=== PATIENT | male | born 1955 | race Caucasian/White ===

== ENCOUNTER 2020-05-29 19:54 | Inpatient (IN) | payer MEDICARE, OTHER, SELFPAY ==
[2020-05-29 20:05] VITALS: BP 181/90; PULSE 103; RESP 14; TEMP 36.5; O2SAT 97; BMI 26.9
[2020-05-29 20:23] LABS: Basophils % 0.4 %; Eosinophils % 0.4 %; Hematocrit 42.7 % (42.0-52.0); Hemoglobin 13.5 g/dL (11.7-16.6); Lymphocytes # 1.2 10^3/uL (0.8-4.8); Lymphocytes % 12.6 %; Mean Corpuscular HGB Conc 31.6 g/dL (30.0-36.0); Mean Corpuscular Hemoglobin 29.1 pg (28.0-34.0); Mean Platelet Volume 11.3 fL (7.4-10.4); Monocytes # 0.6 10^3/uL (0.2-0.9); Monocytes % 5.7 %; Neutrophils # 7.9 10^3/uL (1.8-7.7); Neutrophils % 80.6 %; Nucleated Red Blood Cells % 0 %; Platelet Count 338 10^3/cmm (130-400); Red Blood Count 4.64 10^6/uL (4.1-5.3); Red Cell Distribution Width 12.5 % (12.1-15.1); White Blood Count 9.8 10^3/uL (4.0-10.0)
[2020-05-29 20:49] LABS: Acetaminophen < 5.0 ug/mL (10-30); Alanine Aminotransferase 7 U/L (0-41); Albumin Level 4.6 g/dL (3.5-5.2); Alcohol Level < 10 mg/dL (0-10); Alkaline Phosphatase 94 IU/L (40-130); Aspartate Amino Transferase 15 U/L (0-40); Blood Urea Nitrogen 10 mg/dL (8-23); Calcium 9.7 mg/dL (8.5-10.5); Carbon Dioxide 24 mmol/L (22-29); Chloride 98 mmol/L (98-107); Creatinine Clr Calc Pharmacy 113.8302; Globulin 3.2 g/dL (1.3-4.6); Glucose 139 mg/dL (65-115); Osmolality Calculated 280 mOsm/kg (285-295); Salicylate < 0.3 mg/dL (3-10); Sodium 136 mmol/L (136-145); Total Bilirubin 0.6 mg/dL (0.15-1.2); Total Protein 7.8 g/dL (6.6-8.7)
[2020-05-29 20:53] LABS: Add Urine Microscopic? NO
[2020-05-29 21:07] LABS: Urine Appearance Clear (CLEAR); Urine Color Yellow (Yellow); pH Urine 6.5 (5-7)
[2020-05-29 21:08] LABS: Bilirubin Urine Neg (NEGATIVE); Blood Urine Neg (Negative); Glucose Urine UA Norm (Normal); Ketones Urine Negative (Negative); Leukocyte Esterase Urine Negative (Negative); Nitrate Urine Negative (Negative); Protein Urine Neg (Negative); Specific Gravity, Urine 1.015 (1.005-1.030); Urobilinogen Urine Norm (Negative)
[2020-05-29 21:17] LABS: Amphetamines Screen Urine Negative (Negative); Barbiturates Screen Urine Negative (Negative); Benzodiazepines Screen Urine Negative (Negative); Cocaine Screen Urine Negative (Negative); Opiate Screen Urine Negative (Negative); PCP Screen Urine Negative (Negative); THC Screen Urine Negative (Negative)
--- NOTE | 2020-05-29 22:04 | W.ED.PSYCH ---
HPI - Psych General: Chief Complaint: Psychiatric Symptoms Stated Complaint: 96 hr Time Seen by Provider: 05/29/20 20:34 Source: patient and police Mode of arrival: other (law enforcement) Limitations: no limitations History of Present Illness: HPI Narrative: The patient was brought in by law enforcement because several complaints have been made about this patient harassing women. He apparently believes he is a famous hairdresser and has been asking women into his car so he can help fix their hair. He did this to several different women and they therefore called the police and he was arrested and placed in care home. Because of his continued bizarre behavior a court ordered 96-hour hold was obtained and he was brought in here to be evaluated. The patient denies homicidal or suicidal ideation. Associated symptoms: Reports delusions; Deny depression Review of Systems General: Reports: 10 or more systems reviewed and unremarkable except in HPI and below Const: Denies: fever(s), chills or body aches Card: Denies: palpitations, irregular heart rhythm, edema or swelling of feet/ankles Resp: Denies: dyspnea, productive cough or non-productive cough GI: Denies: abdominal pain, nausea or vomiting : Denies: flank pain, dysuria, urinary frequency, urinary urgency or urinary hesitancy Musc: Denies: neck pain, back pain or extremity swelling Skin/Breast: Denies: rash, pruritus or erythema Neuro: Denies: headache(s), numbness in extremities or weakness in extremities Psych: Denies: anxiety, depression or mood swings Endo: Denies: polyuria, polydipsia or tired all the time Physical Exam Const: COMMON NORMALS: no acute distress, average body habitus, patient oriented x3, no limitations, healthy appearing, alert and well nourished HENMT: COMMON NORMALS: normocephalic, atraumatic and moist oral mucous membranes HEAD & SCALP: normocephalic and atraumatic Neck/C-Spine: COMMON NORMALS: no meningeal signs and no JVD Resp: COMMON NORMALS: normal respiratory effort, No retractions, No use of accessory muscles, clear to auscultation bilaterally and percussion normal AUSCULTATION: clear to auscultation bilaterally PERCUSSION: percussion normal Cardio: COMMON NORMALS: no JVD, regular rate, regular rhythm, S1 normal heart sound present, S2 normal heart sound present, No gallops present (Cardio), No clicks present (Cardio), No murmurs present (Cardio), No rub (Cardio) and Peripheral pulses 2+ throughout RATE: regular rate RHYTHM: regular rhythm HEART SOUNDS: S1 normal heart sound present and S2 normal heart sound present PERIPHERAL PULSES: Peripheral pulses 2+ throughout GI: COMMON NORMALS: Normal to inspection, nondistended, normoactive bowel sounds present, Soft to palpation, non-tender, No hepatosplenomegaly present, no masses and no bruits PALPATION: Yes Soft to palpation and Yes No hepatosplenomegaly present : COMMON NORMALS: Yes no CVA tenderness BLADDER/KIDNEY EXAM: Yes no CVA tenderness Back/Pelvis: COMMON NORMALS: no CVA tenderness Extremity: COMMON NORMALS: normal to inspection, full ROM, capillary refill normal, no calf tenderness and no pedal edema Neuro: COMMON NORMALS: patient oriented x3 SENSORIUM/ORIENTATION: Yes alert MENINGEAL SIGNS: Yes no meningeal signs Psych: COMMON NORMALS: speech normal ATTITUDE: Yes calm ACTIVITY/MOTOR BEHAVIOR: Yes appropriate eye contact SPEECH: Yes normal speech THOUGHT CONTENT: Yes delusions Skin: COMMON NORMALS: no rashes or lesions noted, no wounds, turgor normal, no jaundice, no petechiae and no mottling GENERAL SKIN EXAM: no rashes or lesions noted and turgor normal MDM - Psych MDM Narrative: Medical decision making narrative: 65-year-old male with delusions of grandeur leading to harassing innocent women. He is medically cleared and admitted to the neuropsychiatric unit for further evaluation and management. Medical Records: Attestation: I reviewed the patient's medical records. Lab Data: Attestation: I reviewed the patient's lab results. Labs: Lab Results 05/29/20 05/29/20 05/29/20 Range/Units 20:14 20:14 20:46 WBC 9.8 (4.0-10.0) 10^3/ uL RBC 4.64 (4.1-5.3) 10^6/u L Hgb 13.5 (11.7-16.6) g/dL Hct 42.7 (42.0-52.0) % MCV 92.0 (80-94) fL MCH 29.1 (28.0-34.0) pg MCHC 31.6 (30.0-36.0) g/dL RDW 12.5 (12.1-15.1) % Plt Count 338 (130-400) 10^3/c mm MPV 11.3 H (7.4-10.4) fL Neut % (Auto) 80.6 % Lymph % (Auto) 12.6 % [place] % (Auto) 5.7 % Eos % (Auto) 0.4 % Baso % (Auto) 0.4 % Neut # (Auto) 7.9 H (1.8-7.7) 10^3/u L Lymph # (Auto) 1.2 (0.8-4.8) 10^3/u L [place] # (Auto) 0.6 (0.2-0.9) 10^3/u L Eos # (Auto) 0.0 (0.0-0.8) 10^3/u L Baso # (Auto) 0.0 (0.0-0.1) 10^3/u L Nucleated RBC % (a uto) 0 % Nucleated RBCs # 0.0 /100WBC Sodium 136 (136-145) mmol/L Potassium 4.0 (3.5-5.1) mmol/L Chloride 98 (98-107) mmol/L Carbon Dioxide 24 (22-29) mmol/L Anion Gap 18.0 (5-19) BUN 10 (8-23) mg/dL Creatinine 0.8 (0.7-1.2) mg/dL GFR Calculation 97.0 (90-130) mL/min Glucose 139 H (65-115) mg/dL Calculated Osmolal ity 280 L (285-295) mOsm/k g Calcium 9.7 (8.5-10.5) mg/dL Total Bilirubin 0.6 (0.15-1.2) mg/dL AST 15 (0-40) U/L ALT 7 (0-41) U/L Alkaline Phosphata se 94 (40-130) IU/L Total Protein 7.8 (6.6-8.7) g/dL Albumin 4.6 (3.5-5.2) g/dL Globulin 3.2 (1.3-4.6) g/dL Urine Color (Yellow) Urine Appearance (CLEAR) Urine pH (5-7) Ur Specific Gravit y (1.005-1.030) Urine Protein (Negative) Urine Glucose (UA) (Normal) Urine Ketones (Negative) Urine Blood (Negative) Urine Nitrate (Negative) Urine Bilirubin (NEGATIVE) Urine Urobilinogen (Negative) mg/dL Ur Leukocyte Marla ase (Negative) Salicylates < 0.3 L (3-10) mg/dL Urine Opiates Scre en Negative (Negative) ng/mL Acetaminophen < 5.0 L (10-30) ug/mL Ur Barbiturates Sc reen Negative (Negative) ng/mL Ur Phencyclidine S crn Negative (Negative) ng/mL Ur Amphetamines Sc reen Negative (Negative) ng/mL U Benzodiazepines Scrn Negative (Negative) ng/mL Urine Cocaine Scre en Negative (Negative) ng/mL U Marijuana (THC) Screen Negative (Negative) ng/mL Ethyl Alcohol < 10 (0-10) mg/dL 05/29/20 Range/Units 20:46 WBC (4.0-10.0) 10^3/ uL RBC (4.1-5.3) 10^6/u L Hgb (11.7-16.6) g/dL Hct (42.0-52.0) % MCV (80-94) fL MCH (28.0-34.0) pg MCHC (30.0-36.0) g/dL RDW (12.1-15.1) % Plt Count (130-400) 10^3/c mm MPV (7.4-10.4) fL Neut % (Auto) % Lymph % (Auto) % [place] % (Auto) % Eos % (Auto) % Baso % (Auto) % Neut # (Auto) (1.8-7.7) 10^3/u L Lymph # (Auto) (0.8-4.8) 10^3/u L [place] # (Auto) (0.2-0.9) 10^3/u L Eos # (Auto) (0.0-0.8) 10^3/u L Baso # (Auto) (0.0-0.1) 10^3/u L Nucleated RBC % (a uto) % Nucleated RBCs # /100WBC Sodium (136-145) mmol/L Potassium (3.5-5.1) mmol/L Chloride (98-107) mmol/L Carbon Dioxide (22-29) mmol/L Anion Gap (5-19) BUN (8-23) mg/dL Creatinine (0.7-1.2) mg/dL GFR Calculation (90-130) mL/min Glucose (65-115) mg/dL Calculated Osmolal ity (285-295) mOsm/k g Calcium (8.5-10.5) mg/dL Total Bilirubin (0.15-1.2) mg/dL AST (0-40) U/L ALT (0-41) U/L Alkaline Phosphata se (40-130) IU/L Total Protein (6.6-8.7) g/dL Albumin (3.5-5.2) g/dL Globulin (1.3-4.6) g/dL Urine Color Yellow (Yellow) Urine Appearance Clear (CLEAR) Urine pH 6.5 (5-7) Ur Specific Gravit y 1.015 (1.005-1.030) Urine Protein Neg (Negative) Urine Glucose (UA) Norm (Normal) Urine Ketones Negative (Negative) Urine Blood Neg (Negative) Urine Nitrate Negative (Negative) Urine Bilirubin Neg (NEGATIVE) Urine Urobilinogen Norm (Negative) mg/dL Ur Leukocyte Marla ase Negative (Negative) Salicylates (3-10) mg/dL Urine Opiates Scre en (Negative) ng/mL Acetaminophen (10-30) ug/mL Ur Barbiturates Sc reen (Negative) ng/mL Ur Phencyclidine S crn (Negative) ng/mL Ur Amphetamines Sc reen (Negative) ng/mL U Benzodiazepines Scrn (Negative) ng/mL Urine Cocaine Scre en (Negative) ng/mL U Marijuana (THC) Screen (Negative) ng/mL Ethyl Alcohol (0-10) mg/dL Discharge Plan Discharge Patient Disposition: Admitted As Inpatient Admit Provider: Harinder Ocampo Clinical Impression: Acute psychosis Condition: Stable Coding Level of Care Code ED Tap And Die Maker Technician for Mulugeta Narvaez
[2020-05-29 22:25] LABS: Thyroid Stimulating Hormone 1.96 uIU/mL (0.27-4.20)
--- NOTE | 2020-05-29 22:27 | PC.NURSE ---
[facility] dept needs to be contacted when pt is d/c [phone]
[2020-05-29 22:32] VITALS: BP 156/92; PULSE 96; RESP 18; O2SAT 97
[2020-05-30 06:00] VITALS: BP 154/85; PULSE 87; RESP 17; TEMP 36.9; O2SAT 96
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
[2020-05-30 14:00] VITALS: BP 144/85; PULSE 90; RESP 20; TEMP 37.1; O2SAT 96
[2020-05-30] MEDS: ARIPiprazole 10 mg Tablet PO (17:12)
[2020-05-30 21:12] VITALS: BP 150/92; PULSE 95; RESP 22; TEMP 37; O2SAT 98
[2020-05-31 06:00] VITALS: BP 152/97; PULSE 81; RESP 20; TEMP 36.7; O2SAT 94
[2020-05-31] MEDS: ARIPiprazole 10 mg Tablet PO (08:35)
--- NOTE | 2020-05-31 10:27 | PC.SOCIAL ---
Deputy Glover called yesterday and spoke to nurse Lucas. Nurse Shayy told this worker that she requested a fax showing the no orosco warrant notification or proof that we are required to notify the [facility]'s department upon patient's discharge. It was said by Shayy that [facility] wants patient picked up so they want to be notified. phone number: [phone]. Nurse Lucas provided this worker a post-it about this message. This information has also been shared with U social worker masters
--- NOTE | 2020-05-31 11:15 | PC.SOCIAL ---
important message for medicare provided to patient. signed and dated copy in chart and copy provided to patient.
[2020-05-31 14:00] VITALS: BP 152/97; PULSE 81; RESP 20; TEMP 36.7; O2SAT 94
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
[2020-05-31 21:43] VITALS: BP 145/77; PULSE 92; RESP 22; TEMP 36.8; O2SAT 95
[2020-06-01 06:00] VITALS: BP 157/97; PULSE 84; RESP 20; TEMP 36.6; O2SAT 97
[2020-06-01] MEDS: ARIPiprazole 10 mg Tablet PO (08:45)
[2020-06-01 14:00] VITALS: BP 142/87; PULSE 87; RESP 20; TEMP 36.8; O2SAT 95
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
[2020-06-01 20:13] VITALS: BP 136/89; PULSE 88; RESP 18; TEMP 36.9; O2SAT 94
[2020-06-02 06:00] VITALS: BP 167/95; PULSE 77; RESP 16; TEMP 36.4; O2SAT 97
[2020-06-02] MEDS: ARIPiprazole 10 mg Tablet PO (08:26)
[2020-06-02] MEDS: loperamide 2 mg Capsule PO (12:19)
[2020-06-02 13:13] VITALS: BP 131/84; PULSE 91; RESP 18; TEMP 36.9; O2SAT 97
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
[2020-06-02 20:28] VITALS: BP 148/82; PULSE 93; RESP 17; TEMP 36.6; O2SAT 97
[2020-06-03 06:00] VITALS: BP 150/92; PULSE 93; RESP 15; TEMP 36.7; O2SAT 97
[2020-06-03] MEDS: ARIPiprazole 10 mg Tablet PO (08:30)
[2020-06-03] MEDS: acetaminophen 325 mg Tablet 650 MG PO ×3 (09:56→20:51)
[2020-06-03 14:00] VITALS: BP 117/69; PULSE 60; RESP 18; TEMP 36.8
--- NOTE | 2020-06-03 21:36 | PC.NURSE ---
REASSED BACK PAIN . pATIENT STATED IT IS ALMOST GONE, RATES PAIN 1/10 ON0/10 SCALE
[2020-06-03 21:49] VITALS: BP 113/68; PULSE 55; RESP 18; TEMP 37.1; O2SAT 98
[2020-06-04 06:00] VITALS: BP 133/86; PULSE 58; RESP 17; TEMP 37; O2SAT 99
[2020-06-04] MEDS: ARIPiprazole 10 mg Tablet PO (08:48)
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
[2020-06-04] MEDS: acetaminophen 325 mg Tablet 650 MG PO (13:13)
[2020-06-04] MEDS: loperamide 2 mg Capsule PO (15:02)
[2020-06-04 15:24] VITALS: BP 133/86; PULSE 58; RESP 17; TEMP 37; O2SAT 99
== END 2020-06-04 16:07 | disposition home or self-care (01) | DRG 885 ==
LOC: ER 20:34 → NP 21:58
PROVIDERS: Emergency Medicine; Family Medicine; Admitting Provider Psychiatry & Neurology Psychiatry; Visit Provider Psychiatry & Neurology Psychiatry
DX: F23 Brief psychotic disorder (principal); F42.9 Obsessive-compulsive disorder, unspecified; F65.9 Paraphilia, unspecified; F30.9 Manic episode, unspecified
CPT/HCPCS: 12345; 36415; 80053; 80306; 80307; 81003; 84443; 85025; 99284